=== PATIENT | male | born 1990 | race Caucasian/White ===

== ENCOUNTER 2016-05-23 18:28 | Emergency (ER) | payer OTHER ==
--- NOTE | 2016-05-23 20:11 | PROVIDER DOCUMENTATION ---
HPI-General Adult - General Chief Complaint: Flu Symptoms Stated Complaint: D/N AND RUNNING NOSE Time Seen by Provider: 05/23/16 20:03 Source: patient Allergies/Adverse Reactions: Patient Allergies Allergy/AdvReac Type Severity Reaction Status Date / Time lactose Allergy ABDOMINAL Verified 05/23/16 20:22 PAIN methotrexate AdvReac Unknown Verified 05/23/16 20:22 Home Medications: Home Medication List Medication Instructions Recorded Confirmed Last Taken Type Fluticasone 50 Mcg Nasal [place] 1 spray RAISSA BID PRN PRN #1 bottle 04/06/1405/14/15 Rx [Flonase] Hydrocodone/Acetaminophen [[place] 1 tab PO BID 05/14/15 05/14/15 05/14/15 History 7.5-325 Tablet] Prednisone 10 mg PO DIRECTED #9 tablet 04/15/16 Unknown Rx Secukinumab [Cosentyx Pen] DIRECTED 04/15/16 04/13/16 History Amoxicillin [Amoxil] 875 mg PO Q12HR #20 tablet 05/23/16 Unknown Rx - History of Present Illness -Gen Adult Nature of Presenting Problems: 26 yo male presents to ER with c/o diarrhea for the past 2-3 months. He is lactose intolerant and tries not to eat too much dairy but continues to eat it despite lactose intolerance. He took 2 doses of OTC anti-diarrheal. He saw his [employer] [employer] and was given an anti-diarrheal. He has had 3 diarrheal BMs today but then states that it was not completely diarrhea. He also c/o constipation. Denies abdominal cramping. Last dairy intake was today between [id number]. He requests a strong prescription anti-diarrhea medication. Runny nose for 2 days. Location of Pain/Injury: reports: none Pain Radiation: reports: no radiation Quality of Pain: reports: none Severity: reports: mild Onset/Duration: reports: other (2 weeks) Timing: reports: intermittent Context/Activities at Onset: reports: none Modifying Factors: improves with: eating (dairy worsens) Associated Symptoms: reports: diarrhea Similar Symptoms Previously?: Yes Recently seen or treated by another doctor?: Yes ([employer] [employer] last seen last month) Review of Systems - Adult - REVIEW OF SYSTEMS - ADULT Constitutional: reports: no symptoms reported Eyes: reports: no symptoms reported Ears, Nose, Mouth & Throat: reports: see HPI, sinus problem Cardiovascular: reports: no symptoms reported Respiratory: reports: no symptoms reported Gastrointestinal: reports: see HPI, constipation, diarrhea Genitourinary: reports: no symptoms reported Musculoskeletal: reports: no symptoms reported Integumentary: reports: no symptoms reported Neurological: reports: no symptoms reported Psychiatric: reports: no symptoms reported Endocrine: reports: no symptoms reported Hematologic/Lymphatic: reports: no symptoms reported Allergic/Immunologic: reports: no symptoms reported All Other Systems: Reviewed and Negative Past History - Adult - PAST MEDICAL HISTORY-ADULT Review of Records: reports: Old Records Reviewed, Nursing Assessment Review, Medications Reviewed, Social history reviewed & non-contributory. Major Childhood Illnesses: reports: denies history Cardiovascular: reports: denies history Respiratory: reports: denies history Gastrointestinal: reports: other (lactose intolerance) Obstetrical/Gynecological: reports: denies history Genitourinary: reports: denies history Musculoskeletal: reports: arthritis, other (psoriatic arthritis) Neurological: reports: denies history Psychiatric: reports: denies history Endocrine/Immune: reports: denies history Other Conditions: reports: psoriasis - PRIOR SURGERIES/PROCEDURES Surgical/Procedure History: reports: none - PRIOR HOSPITALIZATIONS Prior Hospitalizations: reports: none - IMMUNIZATION STATUS Childhood Immunizations: See Nurse Assessment Flu Vaccine: See Nurse Assessment - FAMILY HISTORY Family History: reviewed, not pertinent - SOCIAL HISTORY Smoking: denies, non-smoker Substance Use: none/never, denies Alcohol Use Frequency: occasionally Living Situation: family Occupation: [employer] Physical Exam-General - PHYSICAL EXAM-ADULT Initial Vital Signs Reviewed: Yes - CONSTITUTIONAL General Appearance: appears well, alert, no apparent distress - EYES Eyes: PERRL/EOMI - HEAD, EARS, NOSE, MOUTH & THROAT HENMT: normocephalic/atraumatic, TM abnormal (dull on right TM with fluid), maxillary tenderness (bilateral) - RESPIRATORY Respiratory: no respiratory distress - CARDIOVASCULAR Cardiovascular: normal peripheral pulses - GASTROINTESTINAL (ABDOMEN) Abdominal Exam: normal bowel sounds, non tender, soft - MUSCULOSKELETAL Extremity: normal gait - SKIN Integumentary: normal color, normal turgor - NEUROLOGIC Neurologic: grossly normal - PSYCHIATRIC Psych/Mental Status: normal mood/affect, normal thought content, normal thought process, oriented x 3 Progress - PLAN OF CARE/RESULTS Progress/Plan/Lab Results: 2119-Discussed results/dx/tx/discharge and follow up instructions with patient; he verbalized understanding. Also explained why I would not prescribed anti- diarrheal at this time. Laboratory Last Values Influenza A (Rapid) NEGATIVE (NEGATIVE) 05/23/16 18:46 Influenza B (Rapid) NEGATIVE (NEGATIVE) 05/23/16 18:46 Orders Category Date Time Status FLAT/UPRIGHT ABD/1 VIEW CHEST [RAD] Stat Exams 05/23/16 20:18 Taken Flu [INFLUENZA SCREEN PL] Stat Lab 05/23/16 18:46 Completed Vital Signs - 24 hr 05/23/16 18:45 Temperature 97.8 F Pulse Rate 107 H Respiratory 18 Rate Blood Pressure 132/84 O2 Sat by Pulse 100 Oximetry - XRAY 1 XRAY Study: Chest, Abdomen Impression: Abnormal (constipation) XRAY Interpretation: Interpreted by Dr. Gonzalez. Departure - Departure Time of Disposition Order: 21:26 DIAGNOSIS: Constipation Qualifiers: Constipation type: unspecified constipation type Qualified Code(s): K59.00 - Constipation, unspecified Sinusitis Qualifiers: Sinusitis location: maxillary Chronicity: acute Recurrence: non-recurrent Qualified Code(s): J01.00 - Acute maxillary sinusitis, unspecified Disposition: HOME 01 Certified Medical Emergency: Emergent Condition: Good Additional Instructions: Follow up with primary care doctor. Take miralax over the counter- 1 capful mixed in 8 ounces of fluid daily. Take medications as prescribed. Increase fiber intake. Avoid dairy foods. ED Follow Up Instructions: You have been treated by a care provider in the Emergency Department. These instructions are being provided to you so you can have an understanding of how to care for yourself upon discharge. Upon discharge from the Emergency Department, you are responsible for making arrangements for follow-up care by a physician of your choice. Take all prescribed medications as directed. Return to the Emergency Department immediately for any new or worsening symptoms. You may call the Physician Referral phone number at [phone] to obtain a list of Physicians who are taking new patients. Prescriptions: Amoxicillin [Amoxil] 875 mg PO Q12HR #20 tablet Referrals: None,PCP [Primary Care Provider] - Forms: Return to School/Parent Work Instructions: Amoxicillin capsules or tablets, Constipation, Adult, Easy-to- Read, Sinusitis, [id number]-ft-[id number] Attestation - Physician/ ZIYAD Attestation Patient care was provided by Advanced Practice Provider:: Yes Advanced Practice Provider:: Debbie Hargrove Advanced Practice Provider documentation review:: The Mid-level provider documentation, treatment plan and medical decision making was reviewed by the physician who agrees with all treatment and medical decision making by the MLP.
[2016-05-23 21:35] VITALS: BP 139/88
--- NOTE | 2016-05-24 08:05 | Diag Imaging Result Document ---
PROCEDURE NAME: FLAT/UPRIGHT ABD/1 VIEW CHEST - 05/23/2016 FLAT AND UPRIGHT AND CHEST, THREE VIEWS: FINDINGS: The lungs are well expanded. Heart is not enlarged. No pneumonia. No free air beneath the diaphragm. No bowel obstruction. No organomegaly. No abnormal abdominal or pelvic calcifications. No foreign body. Mild scoliosis. There is a small amount of stool throughout the colon. IMPRESSION: Mild constipation.
== END 2016-05-23 21:51 | disposition home or self-care (01) ==
LOC: P.ED 18:28
DX: K59.00 Constipation, unspecified (principal); J01.00 Acute maxillary sinusitis, unspecified; R19.7 Diarrhea, unspecified; M19.90 Unspecified osteoarthritis, unspecified site; L40.50 Arthropathic psoriasis, unspecified; Z79.899 Other long term (current) drug therapy; Z79.52 Long term (current) use of systemic steroids
CPT/HCPCS: 74022; 87804; 99283